=== PATIENT | female | born 1970 | race Caucasian/White ===

== ENCOUNTER 2017-02-03 09:49 | Day surgery (SDC) | payer OTHER ==
[~2017-02-03] VITALS: Ht 162.6 cm; Wt 80.7 kg
[2017-02-03] VITALS (13 sets, daily range): BP systolic 114–141; BP diastolic 61–81
[~2017-02-03 09:49] MED LIST: BENAZEPRIL HCL20 MG ORAL; CONCERTA18 MG PO; LEVOTHYROXINE25 MCG ORAL; METOPROLOL SUC200 MG ORAL
[2017-02-03] MEDS ORDERED: OCUVITE SOFTGE1 EACH ORAL (10:57)
[2017-02-03] MEDS ORDERED: VENTOLIN HFA18 GM INH (11:11)
[2017-02-03] MEDS ORDERED: Ropivacaine 5mg/ml Vial 30ml INJ ONE (12:11)
[2017-02-03] MEDS ORDERED: cefOXitin 1gm Inj ONE (12:11)
[2017-02-03] MEDS ORDERED: EPINEPHrine 1mg/1ml Amp ONE (12:11)
[2017-02-03] MEDS ORDERED: Dexamethasone 4mg/ml vial ONE (12:11)
[2017-02-03] MEDS ORDERED: Propofol 200mg/20ml IV ONE (12:11)
[2017-02-03] MEDS ORDERED: Ketorolac 30mg Inj ONE (12:30)
[2017-02-03] MEDS ORDERED: NS Irrig 1000ml ONE (12:30)
[2017-02-03] MEDS ORDERED: LR 1000ml ONE (12:30)
[2017-02-03] MEDS ORDERED: Midazolam 2mg/2ml Inj ONE (12:30)
[2017-02-03] MEDS ORDERED: Sterile Water Irrig 1000ml IRRIG ONE (12:30)
[2017-02-03] MEDS ORDERED: fentaNYL 100 mcg/2 mL IV ONE (12:30)
--- NOTE | 2017-02-03 12:48 | Pre-Procedure Note/Attestation ---
Pre-Procedure Note/Attestation Complete Prior to Procedure Planned Procedure: not applicable Procedure Narrative: Hemorrhoidectomy with tag excision Indications for Procedure Pre-Operative Diagnosis: Hemorrhoids with tags Attestation I attest that I discussed the nature of the procedure; its benefits; risks and complications; and alternatives (and the risks and benefits of such alternatives ), prior to the procedure, with the patient (or the patient's legal food service sales representatives). I attest that, if there was a reasonable possibility of needing a blood transfusion, the patient (or the patient's legal food service sales representatives) was given the [facility] standardized written summary, pursuant to the Zana Indira Blood Safety Act ([place] Health and Safety Code # 1645, as amended). I attest that I re-evaluated the patient just prior to the surgery and that there has been no change in the patient's H&P, except as documented below: JOSHUA MARIANO Feb 03, 2017 12:48
--- NOTE | 2017-02-03 13:17 | Anethesia Preoperative Eval ---
Anesthesia Pre-op PMH/ROS General Date of Evaluation: Feb 03, 2017 Time of Evaluation: 12:15 Anesthesiologist: Alessio ASA Score: ASA 2 Mallampati Score Class I : Soft palate, uvula, fauces, pillars visible Class II: Soft palate, uvula, fauces visible Class III: Soft palate, base of uvula visible Class IV: Only hard plate visible Mallampati Classification: Class II Surgeon: Med Diagnosis: Hemorrhoids Surgical Procedure: Hemorrhoidectomy Anesthesia History: none Family History: no anesthesia problems Allergies: Coded Allergies: WARFARIN (Verified Allergy, Unknown, 02/03/17) POTENTIAL SENSITIVE DUE TO GENETIC TEST Uncoded Allergies: DOWN FEATHERS (Allergy, Severe, 02/03/17) CANNOT BREATHE-THROAT CLOSES UP Medications: see eMAR Past Medical History Cardiovascular: Reports: HTN, Denies: CAD, PR, valve dz, arrhythmia, other Pulmonary: Reports: GRICELDA, Denies: asthma, COPD, other Gastrointestinal/Genitourinary: Reports: GERD - mild, Denies: CRI, ESRD, other Neurologic/Psychiatric: Denies: dementia, CVA, depression/anxiety, TIA, other Endocrine: Reports: hypothyroidism HEENT: Denies: cataract (L), cataract (R), glaucoma, WIYOT (L), WIYOT (R), other Hematology/Immune: Denies: anemia, DVT, bleeding disorder, other Musculoskeletal/Integumentary: Denies: OA, RA, DJD, DDD, edema, other Other: other - overweight PMH Narrative: as above PSxH Narrative: C- section Dental Sx Anesthesia Pre-op Phys. Exam Physician Exam Last Vital Signs Date Time Temp Pulse Resp B/P (MAP) Pulse Ox O2 Delivery O2 Flow Rate FiO2 02/03/17 10:58 97.6 53 20 126/76 100 Room Air Constitutional: NAD Cardiovascular: no M/R/G Gastrointestinal: S/NT/ND Airway Exam Mallampati Score: Class II Neck: flexible ROM: full Teeth: intact Dentures: no upper, no lower Anesthesia Pre-op A/P Labs see chart Urine Test Test 02/03/17 10:20 Urine HCG, Qualitative Negative Studies Pre-op Studies: EKG - NSR Risk Assessment & Plan Assessment: ASA 2 Plan: MAC Status Change Before Surgery: No Pre-Antibiotics Drug: Cefoxitin 1gr. Given Within 1 Hr of Incision: Yes Time Given: 12:58 TOMA RAMOS M.D. Feb 03, 2017 13:17
--- NOTE | 2017-02-03 13:24 | Brief Operative Note ---
Immediate Post Operative Note Operative Note Pre-op Diagnosis: Hemorrhoids with tags Procedure: Hemorrhoidectomy with tag excision Post-op Diagnosis: same Post-op Diagnosis: same as pre-op Findings: consistent w/pre-op dx studies Surgeon: Moriah Jovel MD Anesthesiologist: Zana Mccallum MD Anesthesia: moderate sedation Specimen: yes Complications: none Condition: stable Fluids: see anesthesia record Estimated Blood Loss: minimal Drains: none Implant(s) used?: No MORIAH JOVEL Feb 03, 2017 13:24
[2017-02-03] MEDS ORDERED: LR 1000ml 1,000 ML IVLG SCH (13:31)
--- NOTE | 2017-02-03 13:35 | Immediate Post-Op Evaluation ---
Immediate Post-Op Evalulation Immediate Post-Op Evalulation Procedure: Hemorrhoidectomy Date of Evaluation: Feb 03, 2017 Time of Evaluation: 13:34 IV Fluids: 800 Blood Products: none Estimated Blood Loss: min Urinary Output: none Blood Pressure Systolic: 135 Blood Pressure Diastolic: 72 Pulse Rate: 68 Respiratory Rate: 20 O2 Sat by Pulse Oximetry: 99 Temperature (Fahrenheit): 97.6 Pain Score (1-10): 2 Nausea: No Vomiting: No Complications none Patient Status: awake, patent, none Hydration Status: adequate TOMA RAMOS M.D. Feb 03, 2017 13:35
--- NOTE | 2017-02-03 13:36 | 48 Hour Post Anesthesia Eval ---
Post Anesthesia Evaluation Procedure: Hemorrhoidectomy Date of Evaluation: Feb 03, 2017 Time of Evaluation: 14:26 Blood Pressure Systolic: 142 0: 72 Pulse Rate: 67 Respiratory Rate: 20 Temperature (Fahrenheit): 97.5 O2 Sat by Pulse Oximetry: 98 Airway: patent Nausea: No Vomiting: No Pain Intensity: 2 Hydration Status: adequate Cardiopulmonary Status: stable Mental Status/LOC: patient returned to baseline Follow-up Care/Observations: n/a Post-Anesthesia Complications: none Follow-up care needed: ready to discharge TOMA RAMOS M.D. Feb 03, 2017 13:36
[2017-02-03] MEDS ORDERED: Meperidine 50mg/ml Inj(FOR RIGORS ONLY) IV PRN (13:45)
[2017-02-03] MEDS ORDERED: Hydromorphone 0.5mg/0.5ml inj IVP PRN (13:45)
[2017-02-03] MEDS ORDERED: DiphenhydrAMINE 50mg/ml Inj IVP PRN (13:45)
[2017-02-03] MEDS ORDERED: Ketorolac 30mg Inj IV PRN (13:45)
--- NOTE | 2017-02-03 21:16 | Operative Note - Dictated ---
DATE OF OPERATION: 01/07/2017 PREOPERATIVE DIAGNOSIS: Hemorrhoids with tags. 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 PROCEDURE: Hemorrhoidectomy with anal fissurectomy and tag excision. SURGEON: Moriah Jovel M.D. ANESTHESIOLOGIST: Zana Mccallum M.D. ANESTHESIA: Propofol sedation with local anesthetic. INDICATION FOR PROCEDURE: The patient is a 46-year-old female, who was sent to my office by her physician, Dr. Sepideh Juarez and Dr. Anabelle Clement for colorectal surgical evaluation of hemorrhoids and tags. The patient reports that she has been having hemorrhoids for the last 10 to 20 years. The patient was found to have large anal skin tags with hemorrhoids and fissures. In light of the patient's symptoms, it was determined at this time to proceed with excision under sedation. DESCRIPTION OF PROCEDURE: Upon consent of the patient, the patient was brought to the operating room and placed in the prone basilio-knife position on the operating room table. Once adequate sedation has been established with propofol drip, the patient's buttocks were prepped and draped in usual surgical fashion. A 40 mL of 0.5% ropivacaine with epinephrine mixed with 6 mg of dexamethasone was used as a perianal and pudendal block. A Hill-Cadet retractor was placed in the anal canal and there was found to be some chronic anal fissure on the posterior anterior midline associated with a hemorrhoid and large skin tags. These were excised in elliptical fashion and sent as a specimen. The mucosal defect was closed with interrupted 3-0 Vicryl sutures. The anal canal was irrigated and hemostasis was confirmed. The remaining of the internal hemorrhoids were noted to be moderately small in size. The anal canal was then irrigated and hemostasis was confirmed. An ice pack was used for postoperative swelling. Sponge, needle, and instrument counts were correct at the end of the case. The patient was awakened from anesthesia and brought to postanesthesia recovery room in stable condition. ESTIMATED BLOOD LOSS: Less than 5 mL. DRAINS: None. SPECIMEN: Hemorrhoid with fissure and tag. COMPLICATIONS: None. Moriah Jovel M.D. DR: EDNA JOB#: [id number] CC: Moriah Jovel M.D.; Fax#: [phone] Vanessa Garcia M.D.
== END 2017-02-03 15:35 | disposition home or self-care (01) ==
LOC: SUR 09:49
DX: K64.4 Residual hemorrhoidal skin tags (principal); K60.1 Chronic anal fissure; I10 Essential (primary) hypertension; K21.9 Gastro-esophageal reflux disease without esophagitis; E03.9 Hypothyroidism, unspecified; G47.33 Obstructive sleep apnea (adult) (pediatric); Z88.8 Allergy status to other drugs, medicaments and biological substances
CPT/HCPCS: 46230; 46257; 81025; J0171; J0690; J0694; J1100; J1885; J2250; J2405; J2795; J3010; J7120; 94003; 94150